=== PATIENT | female | born 1995 | race Two or more races ===

== ENCOUNTER 2019-01-16 16:32 | Emergency (ER) | payer OTHER, MEDICAID ==
[~2019-01-16] VITALS: Ht 160 cm; Wt 63.6 kg
[2019-01-16] MEDS ORDERED: ACETAMINOPHEN 500 MG TABLET PO ONE (20:00)
[2019-01-16 21:10] VITALS: BP 120/72
== END 2019-01-16 21:26 | disposition home or self-care (01) ==
LOC: EMS 16:33
DX: S00.83XA Contusion of other part of head, initial encounter (principal); Y04.0XXA Assault by unarmed brawl or fight, initial encounter; Y93.89 Activity, other specified; Y92.89 Other specified places as the place of occurrence of the external cause; Y99.8 Other external cause status

== ENCOUNTER 2021-02-23 17:15 | Emergency (ER) | payer OTHER, MEDICAID ==
[~2021-02-23] VITALS: Ht 160 cm; Wt 63.6 kg
[2021-02-23 19:20] VITALS: BP 132/80
== END 2021-02-23 20:06 | disposition home or self-care (01) ==
LOC: EMS 17:15
DX: S62.324A Displaced fracture of shaft of fourth metacarpal bone, right hand, initial encounter for closed fracture (principal); W19.XXXA Unspecified fall, initial encounter; Y93.89 Activity, other specified; Y92.89 Other specified places as the place of occurrence of the external cause; Y99.8 Other external cause status
CPT/HCPCS: 99283